=== PATIENT | male | born 1950 | race Caucasian/White ===

== ENCOUNTER 2017-12-21 19:13 | Emergency (ER) | payer OTHER ==
[2017-12-21] MEDS ORDERED: DIPH,PERTUSS(ACELL),TET VAC/PF 0.5 ML DISP.SYRIN IM ONE (19:34)
[2017-12-21] MEDS ORDERED: BACITRACIN 1 EACH PACKET TP ONE (19:34)
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
[2017-12-21 19:45] VITALS: BP 139/89
[2017-12-21] MEDS ORDERED: NEOMYCIN/BACITRACIN/POLYMYXINB 1 EACH OINT.PACK TP ONE (20:15)
[2017-12-21] MEDS ORDERED: CYCLOBENZAPRINE HCL 5 MG TABLET PO ONE (20:42)
[2017-12-21] MEDS ORDERED: NAPROXEN 250 MG TABLET PO ONE (20:42)
[2017-12-21] MEDS ORDERED: traMADol HCL 50 MG TABLET PO ONE (20:43)
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
== END 2017-12-21 20:55 | disposition home or self-care (01) ==
LOC: ED 19:13
DX: S60.012A Contusion of left thumb without damage to nail, initial encounter (principal); V87.7XXA Person injured in collision between other specified motor vehicles (traffic), initial encounter; Y92.9 Unspecified place or not applicable; Y93.9 Activity, unspecified; Y99.9 Unspecified external cause status; S50.811A Abrasion of right forearm, initial encounter
CPT/HCPCS: 72040; 72100; 73130; 73140; 90471; 90715; 99283